=== PATIENT | female | born 2000 ===

== ENCOUNTER 2023-08-26 04:51 | Inpatient (IN) | payer OTHER ==
[~2023-08-26] VITALS: Ht 162.6 cm; Wt 77.7 kg
[2023-08-26] VITALS (19 sets, daily range): BP systolic 95–145; BP diastolic 61–103
[2023-08-26 07:06] LABS: BASOPHILS ABSOLUTE AUTO 0.02 K/mm3 (0.00-0.23); BASOPHILS PERCENT AUTO 0 % (0-2); EOSINOPHILS ABSOLUTE AUTO 0.03 K/mm3 (0.00-0.68); EOSINOPHILS PERCENT AUTO 0 % (0-6); Hematocrit 35.1 % (33.0-51.0); Hemoglobin 11.4 g/dL (11.5-16.0); IMMATURE GRAN PERCENT AUTO 1 % (0-1); LYMPHOCYTES ABSOLUTE AUTO 3.13 K/mm3 (0.84-5.20); LYMPHOCYTES PERCENT AUTO 32 % (21-46); MONOCYTES PERCENT AUTO 6 % (4-13); Mean Corpuscular HGB 26.5 pg (26.0-34.0); Mean Corpuscular HGB Conc 32.5 g/dL (31.5-36.5); Mean Corpuscular Volume 81 fL (80-100); Mean Platelet Volume 12.8 fL (9.1-12.4); NEUTROPHILS PERCENT AUTO 61 % (41-73); Platelet Count 180 K/mm3 (150-400); RDW Coefficient Variation 14.3 % (11.7-14.2); RDW Standard Deviation 41.7 fL (35.1-46.3); Red Blood Cell Count 4.31 M/mm3 (3.80-5.20); White Blood Cell Count 9.88 K/mm3 (4.00-11.30)
[2023-08-26] MEDS ORDERED: OMEP20ER PO (08:28)
[2023-08-26] MEDS ORDERED: METO5A PO (08:29)
[2023-08-27 00:20] VITALS: BP 123/84
[2023-08-27 09:10] VITALS: BP 123/89
[2023-08-27 09:16] LABS: Hematocrit 35.1 % (33.0-51.0); Hemoglobin 11.6 g/dL (11.5-16.0); Mean Corpuscular HGB 26.8 pg (26.0-34.0); Mean Corpuscular Volume 81 fL (80-100); Mean Platelet Volume 12.2 fL (9.1-12.4); Platelet Count 173 K/mm3 (150-400); RDW Coefficient Variation 14.5 % (11.7-14.2); RDW Standard Deviation 42.1 fL (35.1-46.3); Red Blood Cell Count 4.33 M/mm3 (3.80-5.20); White Blood Cell Count 16.56 K/mm3 (4.00-11.30)
[2023-08-27] MEDS ORDERED: PRENATAL TABLE1 EAC2 PO (09:23)
[2023-08-27] MEDS ORDERED: IBUP800 PO (09:23)
[2023-08-27 11:45] VITALS: BP 104/58
[2023-08-27 16:55] VITALS: BP 124/92
== END 2023-08-27 17:15 | disposition home or self-care (01) | DRG 807 ==
LOC: OBS 04:51 → BC 05:00 → OBS 05:10 → BC 05:19
PROVIDERS: Student in an Organized Health Care Education/Training Program; ADMIT Registered Nurse Community Health
PROC: 10E0XZZ Delivery of Products of Conception, External Approach (ICD-10-PCS; principal; 2023-08-26)
PROC: 0HQ9XZZ Repair Perineum Skin, External Approach (ICD-10-PCS; 2023-08-26)
DX: O48.0 Post-term pregnancy (principal); Z37.0 Single live birth; N39.9 Disorder of urinary system, unspecified; O99.892 Other specified diseases and conditions complicating childbirth; O76 Abnormality in fetal heart rate and rhythm complicating labor and delivery; Z3A.41 41 weeks gestation of pregnancy; O70.0 First degree perineal laceration during delivery; O99.02 Anemia complicating childbirth; D64.9 Anemia, unspecified; O99.344 Other mental disorders complicating childbirth; F41.9 Anxiety disorder, unspecified; Z87.19 Personal history of other diseases of the digestive system; Z98.890 Other specified postprocedural states; Z79.899 Other long term (current) drug therapy
CPT/HCPCS: 36415; 85025; 85027; 86850; 86900; 86901; A9270; J1885; J2405; J3010